=== PATIENT | male | born 1965 | race African-American/Black ===

== ENCOUNTER 2019-07-05 15:49 | Inpatient (IN) ==
[2019-07-05] MEDS ORDERED: ASPIRIN ONE (15:58)
[2019-07-05] MEDS ORDERED: ASPIRIN PO ONE (16:01)
--- NOTE | 2019-07-05 16:06 | EKG Report ---
Test Performed on : 07/05/2019 3:53:13 PM Test Reason : Cp Blood Pressure : / mmHG Vent. Rate : 102 BPM Atrial Rate : 102 BPM P-R Int : 160 ms QRS Dur : 100 ms QT Int : 368 ms P-R-T Axes : 071 -63 099 degrees QTc Int : 479 ms Sinus tachycardia. Possible Left atrial enlargement Pulmonary disease pattern Left anterior fascicular block T wave abnormality, consider lateral ischemia Abnormal ECG No previous ECGs available Unconfirmed Result
--- NOTE | 2019-07-05 16:11 | PROVIDER DOCUMENTATION ---
HPI-Chest Pain - General Chief Complaint: Chest Pain Stated Complaint: CHEST PAIN Time Seen by Provider: 07/05/19 16:00 Source: patient Allergies/Adverse Reactions: Patient Allergies Allergy/AdvReac Type Severity Reaction Status Date / Time No Known Allergies Allergy Verified 07/05/19 17:37 Home Medications: Home Medication List Medication Instructions Recorded Confirmed Last Taken Type NK [No Home Medications] 07/05/19 07/05/19 Unknown History - History of Present Illness-CP Nature of Presenting Problem: 53 YOM with PMH of HTN (on no medications) presents with c/o CP that is pressure like and sharp in nature that radiates to the R shoulder, Shoulder pain made worse with movement, he was moving tires when the symptoms occurred. He reports at this time he does not have pain unless he removes his arm. He denies fever, chills. Reports Shortness of breath at the onset of symptoms. He reports recent URI with post nasal drip and cough x 3 weeks. No worse and is improving. Location: reports: substernal Chest Pain Radiation: reports: shoulders (r) Quality of Pain: reports: pressure, sharp Severity in ED: moderate Onset/Duration: 1-3 hours ago Timing: intermittent Context/Activities at Onset: reports: moderate activity Modifying Factors: worse with: movement Associated Symptoms: reports: shortness of breath. denies: fever/chills Nitro Today/Relief: no nitro taken today Aspirin Treatment Today: 325 mg x 1, provided by ED Prior Chest Pain/Cardiac Workup: reports: no prior chest pain, no prior cardiac workup Similar Symptoms Previously?: No Recently Seen Here or By Another Healthcare Provider: Yes Review of Systems - Adult - REVIEW OF SYSTEMS - ADULT Constitutional: reports: no symptoms reported. denies: see HPI, chills, fever, fatique, night sweats, weight gain, weight loss, other Eyes: reports: no symptoms reported. denies: see HPI, discharge, dry eyes, decreased vision, blurred vision, double vision, eye pain, redness, other Ears, Nose, Mouth & Throat: reports: no symptoms reported. denies: see HPI, ear discharge, ear pain, hearing loss, tinnitus, epistaxis, sinus problem, nose pain, loose teeth, mouth/dental pain, mouth swelling, hoarseness, throat pain, throat swelling, other Cardiovascular: reports: see HPI, chest pain. denies: no symptoms reported, edema, heart murmur, irregular heart rate, orthopnea, palpitations, poor circulation, PND, syncope, other Respiratory: reports: cough, shortness of breath. denies: no symptoms reported, see HPI, chronic cough, dyspnea on exertion, excessive sputum production, hemoptysis, pleurisy, wheezing, other Gastrointestinal: reports: no symptoms reported. denies: see HPI, abdominal pain, hematemesis, constipation, diarrhea, difficulty swallowing, frequent heartburn, nausea, poor appetite, rectal bleeding, vomiting, other Genitourinary: reports: no symptoms reported. denies: see HPI, dysuria, discharge, frequency, flank pain, frequent UTI's, hematuria, hesitency, incontinence, urinary retention, urgency, other Musculoskeletal: reports: joint pain (R shoulder). denies: no symptoms reported, see HPI, bone pain, back pain, frequent leg cramps, joint swelling, muscle aches, muscle weakness, neck pain, other Integumentary: reports: no symptoms reported. denies: see HPI, hives, hair loss, itching, mole changes, nail changes, rash, skin sores/ulcer, skin thickening, other Neurological: reports: no symptoms reported. denies: see HPI, ataxia, dizziness/vertigo, headache/migraines, loss of balance, numbness, paresthesia, seizure, slurred speech, syncope, tremors, other Psychiatric: reports: no symptoms reported. denies: see HPI, anxiety, anti- depressant use, alcohol/drug dependence, depression, emotional problems, insomnia, panic attacks, suicidal thoughts, other Endocrine: reports: no symptoms reported. denies: see HPI, change in skin pigment, excessive sweating, goiter, cold intolerance, heat intolerance, increased hunger, increased thirst, polyuria, other Hematologic/Lymphatic: reports: no symptoms reported. denies: see HPI, blood clots, easy bruising, low blood count, lymphedema, prolonged bleeding, swollen l ymph nodes, transfusions, other Allergic/Immunologic: reports: no symptoms reported. denies: see HPI, allergic reactions, allergic rhinitis, asthma, eczema, food allergy, frequent infections, hay fever, hives, positive PPD, urticaria, other Past History - Adult - PAST MEDICAL HISTORY-ADULT Review of Records: reports: Nursing Assessment Review, Social history reviewed & non-contributory. Major Childhood Illnesses: reports: denies history Cardiovascular: reports: denies history Respiratory: reports: denies history Gastrointestinal: reports: denies history Obstetrical/Gynecological: reports: denies history Genitourinary: reports: denies history Musculoskeletal: reports: denies history Neurological: reports: denies history Endocrine/Immune: reports: denies history Other Conditions: reports: denies history - IMMUNIZATION STATUS Childhood Immunizations: See Nurse Assessment Flu Vaccine: See Nurse Assessment - FAMILY HISTORY Family History: reviewed, not pertinent Physical Exam-General - PHYSICAL EXAM-ADULT Initial Vital Signs Reviewed: Yes - CONSTITUTIONAL General Appearance: appears well, alert, no apparent distress - EYES Eyes: PERRL/EOMI, pink conjunctivae - HEAD, EARS, NOSE, MOUTH & THROAT HENMT: normocephalic/atraumatic, moist mucous membranes, normal ENT inspection - NECK Neck: non-tender, full range of motion, supple - RESPIRATORY Respiratory: chest non-tender, lungs clear, normal breath sounds, no respiratory distress, no accessory muscle use - CARDIOVASCULAR Cardiovascular: normal peripheral pulses, no edema, no gallop, no JVD, tachycardia - CHEST (BREASTS) Chest/Breast: negative: tenderness - GASTROINTESTINAL (ABDOMEN) Abdominal Exam: normal bowel sounds, non tender, soft - LYMPHATIC Lymphatic: no adenopathy - MUSCULOSKELETAL Back Exam: normal inspection, no CVA tenderness, no vertebral tenderness Extremity: normal range of motion, non-tender, normal gait, normal inspection, no pedal edema, no calf tenderness Peripheral Pulses: radial (R): 2+, radial (L): 2+ - SKIN Integumentary: normal color, normal turgor, warm/dry - NEUROLOGIC Neurologic: grossly normal - PSYCHIATRIC Psych/Mental Status: normal mood/affect, oriented x 3 - HEART Score HEART Score: History: Moderately Suspicious HEART Score: ECG: Non-Specific Repolarization Disturbance/LBBB/PM HEART Score: Age: 45-65 Years HEART Score: Risk Factors for Atherosclerotic Disease: 1 or 2 Risk Factors HEART Score: Troponin: 1-3x Normal Limit Total HEART Score:: 5 Progress - PLAN OF CARE/RESULTS Progress/Plan/Lab Results: Vital Signs - 8 hr 07/05/19 15:55 07/05/19 17:32 Temperature 97.9 F Pulse Rate 101 H 97 H Respiratory Rate 20 15 Blood Pressure 175/105 167/112 O2 Sat by Pulse Oximetry 98 97 Laboratory Results - last 24 hr 07/05/19 07/05/19 07/05/19 16:04 16:04 16:04 WBC RBC Hgb Hct MCV MCH MCHC RDW Std Deviation Plt Count MPV Immature Gran % (Auto) Neut % (Auto) Lymph % (Auto) Pepin % (Auto) Eos % (Auto) Baso % (Auto) Immature Gran # (Auto) Neut # (Auto) Lymph # (Auto) Pepin # (Auto) Eos # (Auto) Baso # (Auto) PT INR PTT (Actin FS) D-Dimer, Quantitative Sodium 140 Potassium 4.3 Chloride 102 Carbon Dioxide 26 Anion Gap 12 BUN 18 Creatinine 1.2 Estimated GFR/1.73 m2 > 60 BUN/Creatinine Ratio 15 Glucose 109 H Calculated Osmolality 282 Calcium 9.6 Total Bilirubin 0.30 AST 41 H ALT 77 H Alkaline Phosphatase 83 Creatine Kinase 326 H Creatine Kinase Index 1.8 CK-MB (CK-2) 5.96 H Troponin T High Sens 80 H Kgg-S-Nrealwbriwa Pept Total Protein 7.0 Albumin 4.3 Globulin 3.0 Albumin/Globulin Ratio 2.0 07/05/19 07/05/19 07/05/19 16:04 16:04 16:04 WBC 4.95 RBC 5.05 Hgb 12.8 L Hct 40.7 L MCV 80.6 L MCH 25.3 L MCHC 31.4 L RDW Std Deviation 15.4 H Plt Count 232 MPV 11.2 H Immature Gran % (Auto) 0.2 Neut % (Auto) 41.3 L Lymph % (Auto) 44.2 Pepin % (Auto) 10.3 H Eos % (Auto) 3.2 Baso % (Auto) 0.8 Immature Gran # (Auto) 0.01 Neut # (Auto) 2.04 Lymph # (Auto) 2.19 Pepin # (Auto) 0.51 Eos # (Auto) 0.16 Baso # (Auto) 0.04 PT INR PTT (Actin FS) D-Dimer, Quantitative < 0.27 Sodium Potassium Chloride Carbon Dioxide Anion Gap BUN Creatinine Estimated GFR/1.73 m2 BUN/Creatinine Ratio Glucose Calculated Osmolality Calcium Total Bilirubin AST ALT Alkaline Phosphatase Creatine Kinase Creatine Kinase Index CK-MB (CK-2) Troponin T High Sens Bmc-Y-Tahcltyvuoh Pept 3064 H Total Protein Albumin Globulin Albumin/Globulin Ratio 07/05/19 16:04 WBC RBC Hgb Hct MCV MCH MCHC RDW Std Deviation Plt Count MPV Immature Gran % (Auto) Neut % (Auto) Lymph % (Auto) Pepin % (Auto) Eos % (Auto) Baso % (Auto) Immature Gran # (Auto) Neut # (Auto) Lymph # (Auto) Pepin # (Auto) Eos # (Auto) Baso # (Auto) PT 12.5 INR 0.89 PTT (Actin FS) 30.7 D-Dimer, Quantitative Sodium Potassium Chloride Carbon Dioxide Anion Gap BUN Creatinine Estimated GFR/1.73 m2 BUN/Creatinine Ratio Glucose Calculated Osmolality Calcium Total Bilirubin AST ALT Alkaline Phosphatase Creatine Kinase Creatine Kinase Index CK-MB (CK-2) Troponin T High Sens Vje-V-Cngdfcjmeab Pept Total Protein Albumin Globulin Albumin/Globulin Ratio Orders Category Date Time Status Saline Loc NOW Care 07/05/19 16:01 Active CHEST-2 VIEWS [RAD] Stat Exams 07/05/19 16:01 Completed BNP [PRO B-NATRIURETIC PEPTIDE] Stat Lab 07/05/19 16:04 Completed CBC WITH ELECTRONIC DIFF [HEME] Stat Lab 07/05/19 16:04 Completed CK PROFILE [SP CHEM] Stat Lab 07/05/19 16:04 Completed COMPREHENSIVE METABOLIC PANEL [CHEM] Stat Lab 07/05/19 16:04 Completed D-DIMER [COAG] Stat Lab 07/05/19 16:04 Completed PT [PROTIME WITH INR] [COAG] Stat Lab 07/05/19 16:04 Completed PTT [COAG] Stat Lab 07/05/19 16:04 Completed TROPONIN T HIGH SENSITIVITY Stat Lab 07/05/19 16:04 Completed TROPONIN T HIGH SENSITIVITY Stat Lab 07/05/19 17:45 Ordered Aspirin Med 07/05/19 15:58 Discontinued 325 mg .ROUTE .STK-MED ONE Aspirin Med 07/05/19 16:01 Discontinued 325 mg PO NOW ONE Morphine Med 07/05/19 17:04 Discontinued 2 mg IV NOW ONE Ondansetron [Zofran] Med 07/05/19 17:04 Discontinued 4 mg IV NOW ONE EKG [EKG] Stat Ther 07/05/19 16:01 Draft EKG [EKG] Stat Ther 07/05/19 17:45 Ordered Result Diagrams: 07/05/19 16:04 07/05/19 16:04 - EKG 1 Time of EKG reading by physician:: 16:00 EKG Read and Signed by:: Nataliia Carpenter EKG Interpretation (*Must complete 3 of following elements*): Abnormal Rate: 102 Rhythm: ST [place]: normal QRS: other (possible LAE, pulmonary disease pattern, L anterior fascicular block) ST Wave: non-specific ST changes Prior EKG Comparison: no prior EKG - XRAY 1 XRAY Study: Chest Impression: See EMR Report (CHEST-2 VIEWS - 07/05/2019 INDICATION: CP COMPARISON: 06/04/2019 FINDINGS: There is cardiomegaly which may have increased slightly since prior. No infiltrates or edema. No pneumothorax or pleural effusion. IMPRESSION: Worsening cardiomegaly. Electronically signed by Peter Kumar 07/05/2019 4:37 PM 07/05/19 1637 Interpreting Physician: Peter Kumar MD Dictated Date/Time: 07/05/19 1636 cc: Francine Gaona; None,PCP) - CONSULTS/PCP/HOSPITALIST Notification #1 *Consult/PCP/Hospitalist*: Dr. Wheeler Time Discussed: 17:16 Consult Disposition: Admit (admit to [facility], consult cardiology, ASA, trend trop and ekg's) #2 Consult: Dr. Dow Time Discussed: 17:46 Consult Disposition: Admit Departure - Departure Date of Disposition Decision: 07/05/19 Time of Disposition Decision: 17:46 DIAGNOSIS: Chest pain, Elevated troponin, HTN (hypertension), Elevated brain natriuretic peptide (BNP) level Disposition: ADMITTED INPATIENT 09 Certified Medical Emergency: Emergent Condition: Stable Referrals and Follow-Ups: None,PCP [Primary Care Provider] - - Critical Care Note This patient required my direct & personal management of CC.: No Attestation - Physician/ JOSE Attestation Patient care was provided by Advanced Practice Provider:: Yes Advanced Practice Provider:: Francine Gaona Advanced Practice Provider documentation review:: The Mid-level provider documentation, treatment plan and medical decision making was reviewed by the physician who agrees with all treatment and medical decision making by the P. The physician spent face to face time with patient:: No Advanced Practice Provider documentation review:: Supervising physician onsite and consulted in the evaluation and care of this patient. The physician did not have a face to face encounter with the patient.
[2019-07-05 16:25] LABS: BASO# 0.04 X1000 (0.0-0.2); BASO% 0.8 % (0.0-0.8); EOS# 0.16 X1000 (0.0-0.7); EOS% 3.2 % (0.0-10.0); HEMATOCRIT 40.7 % (42.0-52.0); HEMOGLOBIN 12.8 g/dL (14.0-18.0); IMM GRAN# 0.01 X1000 (0.0-0.04); IMM GRAN% 0.2 % (0.0-0.5); LYMPH# 2.19 X1000 (1.2-3.4); LYMPH% 44.2 % (20.5-51.1); MCH 25.3 PG (27-31); MCHC 31.4 g/dL (33-37); MCV 80.6 FL (81-99); MONO# 0.51 X1000 (0.11-0.59); MONO% 10.3 % (1.7-9.3); MPV 11.2 FL (7.4-10.4); NEUT# 2.04 X1000 (1.4-6.5); NEUT% 41.3 % (42.2-75.2); PLT 232 X1000 (130-400); RBC 5.05 XMIL (4.7-6.1); RDW 15.4 % (11.5-14.5); WBC 4.95 X1000 (4.8-10.8)
[2019-07-05 16:39] LABS: AGAP 12; ALBUMIN 4.3 g/dL (3.5-5.0); ALKALINE PHOSPHATASE 83 U/L (32-122); BUN 18 mg/dL (8-22); CALCIUM 9.6 mg/dL (8.8-10.2); CHLORIDE 102 mmol/L (98-107); COSMO 282; CREATININE 1.2 mg/dL (0.7-1.2); ESTIMATED GFR > 60; GLUCOSE 109 mg/dL (70-104); GOT 41 U/L (10-34); GPT 77 U/L (10-44); POTASSIUM 4.3 mmol/L (3.5-5.1); SODIUM 140 mmol/L (136-145); TCO2 26 mmol/L (25-35)
--- NOTE | 2019-07-05 16:39 | Diag Imaging Result Doc PS360 ---
CHEST-2 VIEWS - 07/05/2019 INDICATION: CP COMPARISON: 06/04/2019 FINDINGS: There is cardiomegaly which may have increased slightly since prior. No infiltrates or edema. No pneumothorax or pleural effusion. IMPRESSION: Worsening cardiomegaly. Electronically signed by Peter Kumar 07/05/2019 4:37 PM
[2019-07-05] MEDS ORDERED: ZOFRAN IV ONE (17:04)
[2019-07-05] MEDS ORDERED: MORPHINE IV ONE (17:04)
[2019-07-05 17:06] LABS: CK INDEX 1.8 (0.0-2.5); CK-MB 5.96 ng/mL (0.0-5.0)
[2019-07-05 17:29] LABS: INR 0.89; PROTIME 12.5 Seconds (11.0-16.0)
[2019-07-05 17:30] LABS: PTT 30.7 Seconds (22.3-41.8)
[2019-07-05] MEDS ORDERED: CATAPRES PO ONE (17:47)
--- NOTE | 2019-07-05 18:51 | HISTORY AND PHYSICAL ---
PRIMARY CARE PROVIDER: None. CHIEF COMPLAINT: Chest pain, right shoulder pain. HPI: Mr. Griffin is a 53-year-old gentleman who really claims no past medical history except told he had hypertension a few weeks ago at the urgent care when he was diagnosed with upper respiratory infection. He has been taking wqmz-jcx-rabdogj cold medicine. He reported some postnasal drip, mild cough that has improved. No fever, no chills. He came to the ED for ongoing chest pain for 1 month is epigastric in nature. However the last 2 weeks the chest pain has been associated with shortness of breath. No diaphoresis, nausea, vomiting or dizziness. He reports that the pain is sharp in nature lasts for a few minutes. Workup in the ED revealed elevated CK and troponin. ED spoke with Dr. Wheeler, he recommended a transfer to [facility] for [facility] evaluation. Second troponin is elevated as well. He was found to have accelerated hypertension 190s over 100s. Will make him NPO after midnight let Dr. Wheeler decide on testing, will set him up for an echocardiogram, check lipid profile, continue with p.r.n. pain medications and get a right shoulder x-ray. PAST MEDICAL HISTORY: Recently diagnosed with hypertension but he is not on any medication. PAST SURGICAL HISTORY: Left hip with pins as a child, right arm pins as a child. FAMILY HISTORY: Positive for cancer, sister with breast cancer, mom breast cancer, no coronary disease, no diabetes. 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 No tobacco, alcohol or illicit drug use. ALLERGIES: No known drug allergies. HOME MEDICATIONS: None besides xkqc-vox-amlbrcv cough medicines and ibuprofen for his chest pain. REVIEW OF SYSTEMS: Twelve-point review of systems completely negative except for those mentioned in HPI. PHYSICAL EXAMINATION: VITAL SIGNS: Temperature 97.9 degrees, heart rate 97, respiration 15, blood pressure was 190s over 138 in the room, O2 saturation was 97% on room air however he was complaining of some right shoulder pain secondary to his injury but in no acute distress. HEENT: Atraumatic, normocephalic. PERRL. NECK: Supple, trachea midline. CARDIOVASCULAR: S1, S2 appreciated. No murmurs, gallops, rubs noted. RESPIRATORY: Lung sounds clear bilaterally. GI: Soft, nontender, nondistended. Positive bowel sounds 4 quads. Lower extremities negative for edema, could not appreciate pedal pulses as still has tennis shoe laced up. NEUROLOGIC: No focal deficits noted. LABORATORY DATA: White count 4, hemoglobin and hematocrit 12 and 40, platelet count is 232,000. Sodium 140, potassium 4.3, BUN 18, creatinine 1.2, blood glucose is 109, AST 41, ALT 77, CK 326, CK-MB 5.96, 1st troponin is 80, 2nd troponin 76, ProBNP is 3064. Chest x-ray shows worsening cardiomegaly, no infiltrates or edema. ASSESSMENT AND PLAN: 1. Chest pain rule out, he does have 2 sets of moderately elevated troponins. Will continue to trend 2 more sets, ED spoke with Liam, he would like him transferred to [facility] for further evaluation. Will make him NPO after midnight. Check an echocardiogram, lipid profile, continue full-dose aspirin, p.r.n. pain medications for chest pain. 2. Right shoulder injury secondary to flipping a tire. Will continue with p.r.nTorito Quinones, will get a right shoulder x-ray. 3. Accelerated hypertension, was treated and will follow Dictated by SENA Mcrae for Nick Jackson MD cc: Nick Jackson MD [facility]
[2019-07-05] MEDS ORDERED: MORPHINE ONE (19:08)
[2019-07-05] MEDS ORDERED: ZOFRAN IV PRN (19:14)
[2019-07-05] MEDS ORDERED: NITROGLYCERIN SL PRN (19:14)
[2019-07-05] MEDS: APRESOLINE IV PRN (19:16)
[2019-07-05] MEDS: MORPHINE IV PRN ×2 (19:18→23:47)
--- NOTE | 2019-07-05 19:40 | Diag Imaging Result Doc PS360 ---
SHOULDER-RIGHT - 07/05/2019 INDICATION: R shoulder injury TECHNIQUE: Three views COMPARISON: None FINDINGS: There is moderately severe degeneration of the acromial clavicular joint. No significant downgoing spurring. No fracture or dislocation. The glenohumeral joint is preserved. IMPRESSION: Acromioclavicular joint degeneration. Electronically signed by Peter Kumar 07/05/2019 7:38 PM
[2019-07-05] MEDS: TYLENOL PO PRN (21:26)
--- NOTE | 2019-07-06 00:38 | HISTORY AND PHYSICAL ---
ADDENDUM: The patient presented to the hospital with markedly elevated blood pressure, right shoulder pain after removing a tire. His shoulder started hurting. We are going to admit the hospital. He currently is awake, alert. He is no distress. We are going to attempt to get his blood pressures better controlled. cc: Nick Jackson MD MTDD
[2019-07-06] MEDS: MORPHINE IV PRN ×3 (04:14→21:25)
[2019-07-06 04:55] LABS: BASO# 0.04 X1000 (0.0-0.2); BASO% 0.9 % (0.0-0.8); EOS# 0.16 X1000 (0.0-0.7); EOS% 3.4 % (0.0-10.0); HEMATOCRIT 39.7 % (42.0-52.0); HEMOGLOBIN 12.4 g/dL (14.0-18.0); LYMPH# 1.84 X1000 (1.2-3.4); LYMPH% 39.4 % (20.5-51.1); MCH 25.2 PG (27-31); MCHC 31.2 g/dL (33-37); MCV 80.7 FL (81-99); MONO# 0.39 X1000 (0.11-0.59); MONO% 8.4 % (1.7-9.3); MPV 11.6 FL (7.4-10.4); NEUT# 2.24 X1000 (1.4-6.5); NEUT% 47.9 % (42.2-75.2); PLT 215 X1000 (130-400); RBC 4.92 XMIL (4.7-6.1); RDW 15.6 % (11.5-14.5); WBC 4.67 X1000 (4.8-10.8)
[2019-07-06 05:01] LABS: AGAP 13; ALB/GLOB RATIO 2.1; ALKALINE PHOSPHATASE 76 U/L (32-122); BUN 20 mg/dL (8-22); CALCIUM 9.4 mg/dL (8.8-10.2); CHLORIDE 104 mmol/L (98-107); CHOLESTEROL 211 mg/dL (0-200); COSMO 283; CREATININE 1.2 mg/dL (0.7-1.2); ESTIMATED GFR > 60; GLUCOSE 110 mg/dL (70-104); GOT 31 U/L (10-34); GPT 64 U/L (10-44); HDL 48 mg/dL (35-55); LDL 123 mg/dL; POTASSIUM 4.4 mmol/L (3.5-5.1); SODIUM 140 mmol/L (136-145); TCO2 23 mmol/L (25-35); TOTAL BILIRUBIN 0.42 mg/dL (0.20-1.00); TOTAL PROTEIN 5.9 g/dL (6.3-8.3); TRIGLYCERIDES 200 mg/dL (39-160); VLDL 40 mg/dL
[2019-07-06 05:25] LABS: CK-MB 4.71 ng/mL (0.0-5.0)
[2019-07-06] MEDS: PRILOSEC PO SCH (06:05)
--- NOTE | 2019-07-06 07:15 | Diag Imaging Result Doc PS360 ---
EXAM: CHEST-PORTABLE 07/06/2019 HISTORY: Chest Pain TECHNIQUE: AP portable at 0623 COMMENT: There is cardiomegaly. Considering differences in technique there has been no significant change in the appearance of the chest since 07/05/2019. IMPRESSION: Stable chest. Electronically signed by Prosper Richardson 07/06/2019 7:12 AM
[2019-07-06] MEDS ORDERED: NORVASC PO SCH (09:00)
[2019-07-06] MEDS ORDERED: ASPIRIN PO SCH (09:00)
--- NOTE | 2019-07-06 09:17 | PROGRESS NOTE ---
DATE: 07/06/2019 SUBJECTIVE: Patient reports feeling fine. Chest pain is still there, and sometimes it is triggered by the cough that he had for pneumonia that was treated 2 weeks ago. OBJECTIVE: Vital Signs: Temperature 98.6 degrees, heart rate 92, respiratory rate 17, blood pressure 150/107, O2 saturation 94% on room air. General examination: This is a 53-year-old, male, lying in bed in no acute distress. Cardiovascular exam: S1, S2 heard. No murmurs, gallops, or rubs. Regular rate and rhythm. Respiratory exam: Clear bilaterally to auscultation. No work of breathing or using accessory muscles. Abdomen: Soft. Nontender to palpation. Bowel sounds present. No organomegaly. Extremities: No clubbing, cyanosis, or edema. Peripheral pulses present in both legs. Neurological exam: Patient is alert and oriented x3. Moves 4 extremities. LABORATORY DATA: White cell count 4.67, hemoglobin 12.4, hematocrit 39.7, platelets 215. ProBNP 2950, cholesterol 211, triglycerides 200. ASSESSMENT AND PLAN: 1. Chest pain. The patient had moderately elevated troponins and, because of risk factors, we decided to do a Lexiscan stress test. We will see what it shows. He complains of cough that triggers pain, so at this point I will do a computed tomography scan of the chest to see if there is any pneumonia. Regarding chest pain, we will check an echocardiogram. Lipid has been high, so we have taken care of. 2. Right shoulder injury secondary to sleeping attire. Will continue with as needed [place]. 3. Accelerated hypertension. We will continue with home medications. Blood pressure is much better controlled. cc: Deo Langston MD
--- NOTE | 2019-07-06 09:34 | Diag Imaging Result Doc PS360 ---
EXAM: CT THORAX W/O CONTRAST INDICATION: suspected pna TECHNIQUE: This exam was performed using automated exposure control, adjustment of mA or kV according to patient size, and/or use of iterative reconstruction technique. COMPARISON: None. FINDINGS: There is marked cardiomegaly. There are patchy atherosclerotic calcifications involving the LAD and circumflex artery. There are shotty nonspecific mediastinal lymph nodes. There is mild subsegmental atelectasis at the lung bases. There is minimal interstitial thickening at the lung bases suggesting mild edema. There is mild bronchial mucosal thickening at the lung bases, which suggests bronchitis. There are mild patchy groundglass opacities in the right lung. This is mainly in the right middle lobe. There is minimal groundglass opacity at the superior aspect of the right upper lobe. This is suspicious for mild pneumonia, possibly an atypical viral pneumonia. However, it could also be patchy edema involving the airspaces. There is trace pleural fluid on the right. There is no pneumothorax. Limited views of the upper abdomen are essentially unremarkable. IMPRESSION: 1.Marked cardiomegaly. 2.Mild patchy groundglass opacity in the right lung, predominantly in the right middle lobe suspicious for mild pneumonia, possibly an atypical pneumonia. 3.Mild bronchial mucosal thickening at the lung bases suggesting bronchitis. 4.Minimal interstitial thickening at the lung bases suggesting mild interstitial edema. Electronically signed by Javon Levy 07/06/2019 9:32 AM
--- NOTE | 2019-07-06 10:39 | CARDIOLOGY CONSULTATION ---
DATE: 07/06/2019 CHIEF COMPLAINT ON PRESENTATION: Cough and chest pain. HISTORY OF PRESENT ILLNESS: Mr. Griffin is a 53-year-old, black male with no past medical history by virtue of lack of contact with the medical community. He presented for evaluation of chest discomfort that began yesterday when he woke up from sleep. This was described as a pressure and sharp pain in the mid chest. There was no strict exertional component to it but there was a component that was worse with cough. He has been dealing with an upper respiratory infection for the last 3 weeks or so. He denies any fever. He went to the ER, he reports, and was told that he had postnasal drip and was sent home. He otherwise has no complaints. He denies any overt orthopnea. He does not smoke. He has no other past medical history. PAST MEDICAL HISTORY: Possible hypertension but, again, he does not regularly see physicians. SOCIAL HISTORY: He does not smoke. No alcohol. REVIEW OF SYSTEMS: A 10 system review of systems is negative except for those things mentioned in the HPI. FAMILY HISTORY: He has a sister and mother with breast cancer. No early history of coronary artery disease. PHYSICAL EXAMINATION: The patient has been afebrile. His heart rate is 93. His blood pressure is 150/107. General: He is in no acute distress. HEENT: Oropharynx is moist. Normal dentition. Eye examination shows pink conjunctivae and white sclerae. Neck Examination: Shows no obvious thyromegaly or thyroid tenderness. Cardiovascular: He sounds to be in a regular rate and rhythm. He has no obvious murmurs. He has no S3. He has no lower extremity edema. Chest Examination: Sounds clear to auscultation bilaterally. He has no increased work of breathing. Abdomen: Soft, nontender. Neurological: He is moving all extremities well. Skin Examination: Warm and dry throughout, without any rashes. Psychiatric: Alert, oriented, and pleasant. Normal mood and affect. PERTINENT DATA: He had an electrocardiogram performed on the that demonstrates sinus rhythm. He has some evidence of abnormal T-waves with T-wave inversions in the lateral leads. He has poor R-wave progression. Possible left anterior fascicular block. Left atrial enlargement. He had a chest CT performed that shows mild patchy ground-glass opacity in the right lung in the right middle lobe, suspicious for a possible mild or atypical pneumonia. Some evidence for bronchitis with bronchial mucosal thickening at the lung bases. His lab data shows a white count of 4.6, hematocrit 39, platelet count is 215,000. His sodium is 140, potassium is 4.4, BUN 20, creatinine is 1.2. His proBNP is 2950. His initial high sensitivity troponin was 80, subsequently it was 76, followed by 85. His LDL was 123. ASSESSMENT: Mr. Griffin is a 53-year-old, black male who presented with atypical chest pain with a mild elevation in his troponin. PLAN: Initial review of his stress by me demonstrated a suggestion of cardiomegaly but no clear evidence of defects. We will proceed with the rest of the study. He has already been initiated on medications in the form of amlodipine. For now, we will continue on the current medications and await the remainder of his testing. cc: Azam Keane MD
[2019-07-06] MEDS: APRESOLINE IV PRN (12:16)
[2019-07-06] MEDS: NORCO-7.5 PO PRN (12:17)
[2019-07-06 13:09] LABS: CK-MB 4.42 ng/mL (0.0-5.0)
--- NOTE | 2019-07-06 13:34 | Diag Imaging Result Document ---
PROCEDURE NAME: MYOCARDIAL PERF SCAN, STR/REST - 07/06/2019 EXERCISE SESTAMIBI INTERPRETATION: SUMMARY: The patient was administered 15.4 mCi of technetium-99m sestamibi, after which resting cardiac images were obtained. The patient was subsequently exercised on a treadmill according to a Morteza protocol and exercised for a total of 5 minutes achieving a maximum workload of stage II and 7.0 METS. With exercise, the heart increased from 96 beats per minute to 150 beats per minute, representing 90% of maximal age-predicted heart rate. The blood pressure increased from 163/112 to 241/111. With exercise, the patient denied chest discomfort. At peak exercise, the patient was administered 44.8 mCi of technetium-99m sestamibi, after which gated stress cardiac images were obtained. Baseline ECG demonstrated sinus rhythm, right axis deviation, delayed precordial R-wave progression and nonspecific T-wave abnormality. With exercise, there were no diagnostic ST- segment changes. SPECT images were reconstructed in the short, horizontal long, and vertical long axis. Review of SPECT images suggests severe left ventricular enlargement. Perfusion images demonstrate mild to moderate diminished activity in the inferior wall on stress images which appears similar on resting images. No significant reversibility is evident. Gated images demonstrate a calculated left ventricular ejection fraction of 23% with severe global hypokinesis. CONCLUSIONS: 1. Limited aerobic capacity. Target heart rate achieved. 2. Clinically negative for chest pain. 3. Electrocardiographically, there were no diagnostic ST-segment changes on exercise ECG. 4. Exercise sestamibi images demonstrate severe left ventricular enlargement, severe global hypokinesis, and a calculated left ventricular ejection fraction of 23%. Perfusion images demonstrate mildly diminished activity in the basal and mid inferior wall on stress images, which remains unchanged on resting images and is most consistent with soft tissue/diaphragm attenuation artifact. There is no convincing scintigraphic evidence of inducible myocardial ischemia. Clinical correlation recommended. cc: MD Deo Cobos MD
[2019-07-06] MEDS ORDERED: LASIX IV ONE (16:02)
[2019-07-06] MEDS ORDERED: APRESOLINE IV PRN (16:15)
[2019-07-06] MEDS: TYLENOL PO PRN (17:06)
[2019-07-06 17:29] LABS: UR AMPHETAMINES QUAL NONE DETECTED (NONE DETECT); UR BARBITUATES QUAL NONE DETECTED (NONE DETECT); UR BENZODIAZEPIN QUAL NONE DETECTED (NONE DETECT); UR CANNABINOIDS QUAL NONE DETECTED (NONE DETECT); UR COCAINE QUAL NONE DETECTED (NONE DETECT); UR METHADONE QUAL NONE DETECTED (NONE DETECT); UR OPIATES QUAL PRESUMPTIVE POSITIVE (NONE DETECT); UR OXYCODONE QUAL NONE DETECTED (NONE DETECT); UR PCP QUAL NONE DETECTED (NONE DETECT)
[2019-07-06] MEDS: ZOSYN 3.375 GM in NS 50 ML IV SCH (20:56)
[2019-07-06] MEDS: ENTRESTO 24 MG-26 MG TABLET PO SCH (20:56)
[2019-07-07] MEDS: LEVAQUIN 750 MG/D5W 750 MG/150 ML IVPB IV SCH (01:23)
[2019-07-07] MEDS: DUONEB (A & A) INH SCH ×5 (03:50→23:15)
[2019-07-07] MEDS ORDERED: LASIX IV SCH (04:00)
[2019-07-07] MEDS: ZOSYN 3.375 GM in NS 50 ML IV SCH ×4 (04:02→20:03)
[2019-07-07] MEDS: MORPHINE IV PRN ×2 (04:07→22:18)
[2019-07-07] MEDS: PRILOSEC PO SCH ×2 (05:29→06:09)
[2019-07-07 05:46] LABS: BASO# 0.03 X1000 (0.0-0.2); BASO% 0.7 % (0.0-0.8); EOS# 0.15 X1000 (0.0-0.7); EOS% 3.3 % (0.0-10.0); HEMATOCRIT 43.6 % (42.0-52.0); HEMOGLOBIN 13.8 g/dL (14.0-18.0); LYMPH# 1.19 X1000 (1.2-3.4); MCH 25.2 PG (27-31); MCHC 31.7 g/dL (33-37); MCV 79.6 FL (81-99); MONO# 0.46 X1000 (0.11-0.59); MONO% 10.1 % (1.7-9.3); MPV 11.4 FL (7.4-10.4); NEUT# 2.74 X1000 (1.4-6.5); NEUT% 59.9 % (42.2-75.2); PLT 241 X1000 (130-400); RBC 5.48 XMIL (4.7-6.1); RDW 15.5 % (11.5-14.5); WBC 4.57 X1000 (4.8-10.8)
[2019-07-07 06:25] LABS: AGAP 15; ALBUMIN 3.9 g/dL (3.5-5.0); BUN 19 mg/dL (8-22); CHLORIDE 101 mmol/L (98-107); COSMO 283; CREATININE 1.4 mg/dL (0.7-1.2); ESTIMATED GFR > 60; GLUCOSE 117 mg/dL (70-104); PHOSPHORUS 4.3 mg/dL (2.7-4.5); POTASSIUM 3.8 mmol/L (3.5-5.1); SODIUM 140 mmol/L (136-145); TCO2 24 mmol/L (25-35)
[2019-07-07] MEDS: ENTRESTO 24 MG-26 MG TABLET PO SCH ×2 (08:34→20:03)
[2019-07-07] MEDS: ASPIRIN EC PO SCH (08:34)
[2019-07-07] MEDS: NORVASC PO SCH (08:34)
--- NOTE | 2019-07-07 08:39 | ECHO REPORT ---
ORDER DATE: 07/06/2019 ECHOCARDIOGRAPHIC MEASUREMENTS: 1. Septal thickness 1.4. 2. Left ventricular internal diameter in diastole 5.8. 3. Posterior wall thickness 1.4. 4. Aortic root 3.2. 5. Left atrium 3.4. SUMMARY: 1. Fair quality study. 2. Aortic valve is trileaflet and opens normally on 2-dimensional images. The peak gradient across the aortic valve is less than 10 mmHg. Mitral, tricuspid and pulmonic valves are without evidence of structural abnormality with very mild mitral regurgitation, trace tricuspid regurgitation, and mild pulmonic insufficiency. The aortic root is normal in size. 3. Borderline left ventricular enlargement with moderate concentric left ventricular hypertrophy is suggested. Estimated ejection fraction approximately 20% in the setting of severe global hypokinesis. Left atrium is mildly enlarged on 2-dimensional images. Right atrium and right ventricle are grossly normal in size with grossly preserved right ventricular systolic function. 4. No pericardial effusion. 5. Appearance of inferior vena cava suggests elevated central venous pressure. CONCLUSIONS: 1. Very mild mitral regurgitation. 2. Borderline left ventricular enlargement with moderate concentric left ventricular hypertrophy and estimated left ventricular ejection fraction approximately 20%. 3. Mild left atrial enlargement. 4. Elevated central venous pressure suggested. cc: Herminio Elliott MD
--- NOTE | 2019-07-07 08:58 | PROGRESS NOTE ---
DATE: 07/07/2019 SUBJECTIVE: Patient reports feeling a little bit short of breath, but the pain is located mostly in the right shoulder. Denies any fever or chills. As we mentioned before, he is still having some cough. OBJECTIVE: Vital Signs: Temperature 98.3 degrees, heart rate 89, respiratory rate 18, blood pressure 147/96, O2 saturation 100% on room air. General Examination: This is a 53-year-old, male, lying in bed in no acute distress. Cardiovascular exam: S1, S2 heard. No murmurs, gallops, or rubs. Regular rate and rhythm. Respiratory exam: Minimal crackles noted in both pulmonary bases. Patient not using any accessory muscles or having work of breathing. Abdomen: Soft, nontender to palpation. Bowel sounds present. No organomegaly. Extremities: No clubbing, cyanosis, or edema. Peripheral pulses present in both legs. Neurological exam: Patient alert and oriented x3. Moves 4 extremities. LABORATORY DATA: White cell count 4.57, hemoglobin 13.8, hematocrit 43.6, platelets 241 with BMP that reveals creatinine 1.4. ProBNP that is 1956. IMAGING STUDIES: 1. CT of the chest done yesterday showed mild patchy ground-glass opacity in the right lung, predominantly in the right middle lobe, suspicion for mild pneumonia, possibly an atypical pneumonia. Mild bronchial mucosal thickening at the lung base, chest and bronchi, and minimal interstitial thickening of the lung base suggesting mild interstitial edema. 2. Lexiscan stress nuclear medicine showed ejection fraction 33%. There is no convincing scintigraphic evidence of inducible myocardial ischemia. ASSESSMENT AND PLAN: 1. Community-acquired pneumonia. Patient is feeling better. Findings of the CT of the chest noted. At this point, we will continue with Zosyn and levofloxacin. Patient is also receiving breathing treatments every 6 hours. We will continue with the same management. 2. Acute systolic congestive heart failure. That is a new finding for this patient. The ejection fraction according to the Lexiscan is 25%. The patient has been started on Lasix and Entresto. To continue intravenous fluids The patient will follow recommendation. 3. Right shoulder injury secondary to sleeping attire. Will continue with as-needed pain medication. 4. History of hypertension. Now blood pressure is much better controlled. We will continue with current management. 5. Disposition: We will continue to monitor this patient closely. cc: Deo Langston MD
[2019-07-07] MEDS: LIDODERM TOP SCH (10:24)
[2019-07-07] MEDS: COREG PO SCH ×2 (10:24→20:03)
--- NOTE | 2019-07-07 14:37 | CARDIOLOGY PROGRESS NOTE ---
DATE: 07/07/2019 SUBJECTIVE: Mr. Griffin reports he is doing well. He has no orthopnea. OBJECTIVE: Vital Signs: Afebrile. Heart rate is 93. His blood pressure is 149/89. His I's and O's for the course of the hospitalization have been negative 3.6 L with 2 voids not measured. General: No acute distress. Cardiovascular: He sounds to be in a regular rate and rhythm. He has no murmurs, no S3, no lower extremity edema. Chest exam: Clear bilaterally. He has no increased work of breathing. Abdomen: His abdomen is soft, nontender. PERTINENT DATA: His white count is 4.6, hematocrit 43, platelet count 241. His sodium is 140, potassium 3.8, BUN 19, creatinine is 1.4. BUN and creatinine on the 18 was 20 and 1.2 respectively. His proBNP today is 1956. ASSESSMENT: Mr. Griffin is a 53-year-old black male with a likely nonischemic cardiomyopathy. PLAN: Review of his myocardial perfusion scan by me demonstrates no clear evidence of reversibility. Study likely suggests a nonischemic process. He has an ejection fraction of 23% with severe left ventricular enlargement. His echocardiogram also reviewed by me demonstrates severe reduced LV function with a dilated left ventricle and mild to moderate LVH. We will continue to adjust medications. Presently, the patient is on amlodipine, carvedilol, Lasix and Entresto. I will discontinue the Lasix. He has had a mild creatinine increase in the last 24 hours. We will continue to try to adjust his medications. He will likely need outpatient diuretics. cc: Azam Keane MD
[2019-07-07] MEDS: NORCO-7.5 PO PRN (15:26)
[2019-07-08] MEDS: LEVAQUIN 750 MG/D5W 750 MG/150 ML IVPB IV SCH (00:18)
[2019-07-08] MEDS: ZOSYN 3.375 GM in NS 50 ML IV SCH ×2 (02:03→08:11)
[2019-07-08] MEDS: TYLENOL PO PRN (02:41)
[2019-07-08] MEDS: DUONEB (A & A) INH SCH ×2 (03:35→09:09)
[2019-07-08 05:49] LABS: BASO# 0.03 X1000 (0.0-0.2); BASO% 0.6 % (0.0-0.8); EOS# 0.17 X1000 (0.0-0.7); EOS% 3.5 % (0.0-10.0); HEMATOCRIT 44.1 % (42.0-52.0); LYMPH# 1.84 X1000 (1.2-3.4); LYMPH% 37.7 % (20.5-51.1); MCHC 31.7 g/dL (33-37); MCV 78.8 FL (81-99); MONO# 0.46 X1000 (0.11-0.59); MONO% 9.4 % (1.7-9.3); MPV 10.8 FL (7.4-10.4); NEUT# 2.38 X1000 (1.4-6.5); NEUT% 48.8 % (42.2-75.2); PLT 245 X1000 (130-400); RDW 15.5 % (11.5-14.5); WBC 4.88 X1000 (4.8-10.8)
[2019-07-08] MEDS: PRILOSEC PO SCH (06:00)
[2019-07-08 06:12] LABS: AGAP 12; ALBUMIN 3.8 g/dL (3.5-5.0); BUN 18 mg/dL (8-22); CALCIUM 9.3 mg/dL (8.8-10.2); CHLORIDE 100 mmol/L (98-107); COSMO 277; CREATININE 1.2 mg/dL (0.7-1.2); ESTIMATED GFR > 60; GLUCOSE 119 mg/dL (70-104); PHOSPHORUS 3.8 mg/dL (2.7-4.5); POTASSIUM 4.1 mmol/L (3.5-5.1); SODIUM 137 mmol/L (136-145); TCO2 25 mmol/L (25-35)
[2019-07-08 07:49] VITALS: BP 140/93
[2019-07-08] MEDS: ASPIRIN EC PO SCH (08:11)
[2019-07-08] MEDS: ENTRESTO 24 MG-26 MG TABLET PO SCH (08:11)
[2019-07-08] MEDS: NORVASC PO SCH (08:11)
[2019-07-08] MEDS: COREG PO SCH (08:11)
[2019-07-08] MEDS ORDERED: PREVNAR 13 IM ONE (09:15)
[2019-07-08] MEDS: LIDODERM TOP SCH (10:18)
--- NOTE | 2019-07-08 10:24 | DISCHARGE SUMMARY ---
ADMISSION DATE: 07/05/2019 DISCHARGE DATE: PRIMARY CARE PROVIDER: SENA Loomis. PRIMARY PROCEDURES: Shoulder x-ray showed acromioclavicular joint degeneration. Echocardiogram showed an EF of 20% with LVH. Perfusion scan demonstrated severe left ventricular enlargement with severe global hypokinesis with an EF of 23%, no convincing sonographic evidence of inducible myocardial ischemia. Chest CT showed marked cardiomegaly, mild patchy ground- glass opacity in the right lung, predominantly in the right middle lobe, suspicious for mild pneumonia, possibly atypical. Mild bronchial mucosal thickening in the lung base suggesting bronchitis. Mild interstitial thickening of the lung bases suggesting a mild interstitial edema. CONSULTATIONS: Azam Keane MD with Cardiology. DISCHARGE DIAGNOSES: 1. Likely nonischemic cardiomyopathy. Patient was a chest pain rule out, who has underwent an echocardiogram that showed an ejection fraction of 20% with severe left ventricular enlargement as well as severely reduced left ventricular function. Stress test did not show any acute findings. He was placed on amlodipine, Coreg, Lasix, and Entresto, and medications were adjusted by Cardiology appropriately. 2. Chest pain rule out, ruled out. 3. Community-acquired pneumonia. He was started on Zosyn and levofloxacin and will be discharged on p.o. 4. Right shoulder injury secondary to flipping tire at work, placed on p.r.n. pain medication. X- ray just showed some arthritis. 5. History of hypertension not on any blood pressure medications. Again, the patient will be discharged on several new medications. HOSPITAL COURSE: Briefly, Mr. Griffin is a 53-year-old -[place] gentleman, who claims no past medical history, except he has been told he has had hypertension a few weeks ago at an Urgent Care when he was diagnosed with an upper respiratory infection. He has been taking over-the- counter cold medicines. Reported some postnasal drip, mild cough that had improved. No fever. No chills. He came to the ED for ongoing chest pain of 1 month that was epigastric in nature, however, over the last 2 weeks his chest pain had been associated with shortness of breath, but no nausea, vomiting, dizziness, or diaphoresis. He reports that it is sharp in nature and lasts for a few minutes. Workup in the ED revealed an elevated CK and troponin. The ED spoke with Dr. Wheeler, his recommendation was to transfer to [facility] for further evaluation. His second troponin was elevated as well and was found to have accelerated hypertension. He was made n.p.o. after midnight, transferred to [facility] for an echocardiogram, lipid profile, and continue with p.r.n. medications, and a right shoulder x-ray for his injury that he sustained prior to coming to the ED. Workup with an echocardiogram revealed a severely reduced EF at 23% as well as severe left ventricular enlargement. He was placed on amlodipine, carvedilol, Lasix, and Entresto, that has been adjusted throughout his hospital admission by Cardiology. His perfusion scan did not show any signs of any ischemic changes but did show severe global hypokinesis. His chest CT also showed a probable community-acquired pneumonia as well as some bronchitis for which he was initiated on antibiotics, and he is stable and will be discharged home today to continue to follow up with Cardiology as well as a primary care provider that will be from a list that will be provided to him. VITAL SIGNS: At time of discharge, temperature is 98.3 degrees, heart rate 99, respirations 19, blood pressure 140/93, O2 is 98% on room air. DISCHARGE DIET: Healthy heart. DISCHARGE MEDICATIONS: 1. Aspirin 81 mg p.o. daily. 2. Coreg 3.125 mg p.o. b.i.d. 3. Entresto 24 mg/26 mg 1 each p.o. b.i.d. 4. Potassium 10 mEq p.o. daily. 5. Lasix 20 mg p.o. daily. 6. Levofloxacin 750 mg p.o. daily for 10 days. 7. Norvasc 5 mg p.o. daily. FOLLOWUP: Mr. Griffin is being discharged back to home with self-care. He will need to continue to follow up with Cardiology as well as a primary care provider from the list that has been provided to him. He can return to the ED or call 911 for any worsening of symptoms. Dictated by SENA Mcrae for Deo Langston MD Addendum: Patient seen and examined by myself. Agree with SENA note. It reflects my assessment and plan. Patient is being discharged in stable condition. Will be seen by cardiology in four weeks. cc: Deo Langston MD [facility]
--- NOTE | 2019-07-08 10:39 | CARDIOLOGY PROGRESS NOTE ---
DATE: 07/08/2019 SUBJECTIVE: Mr. Griffin reports no issues overnight. He has no chest pain. He has no shortness of breath. PHYSICAL EXAMINATION: Vital signs: He is afebrile. His heart rate is in the 80s to 90s predominantly. His blood pressure is 140/93. His I's and O's have been -2.5 L for the course of the hospitalization. General: No acute distress. Cardiovascular: He is in a regular rate and rhythm. He has no murmurs. He has no S3. He has no lower extremity edema. Chest: His chest exam is clear bilaterally. He has no increased work of breathing. Abdomen: Soft, nontender. PERTINENT DATA: White count 4.8, hematocrit is 44, platelet count is 245,000. His sodium is 137, potassium is 4.1, BUN 18, creatinine is 1.2. ASSESSMENT: Mr. Griffin is a 53-year-old gentleman, who presented with new onset heart failure that appears to be nonischemic. PLAN: We will continue him on Entresto as well as carvedilol, which I have escalated to 6.25 b.i.d. We will start him on Lasix as well at a dose of 20 mg daily. I will plan on seeing him back in the office in the near future. I will make arrangements from the office. We will check a basic metabolic panel in 1 week. cc: Azam Keane MD
[2019-07-08] MEDS ORDERED: COREG PO SCH (21:00)
[2019-07-09] MEDS ORDERED: LASIX PO SCH (09:00)
== END 2019-07-08 10:39 | disposition home or self-care (01) | DRG 291 ==
LOC: P.ED 15:49 → 2N 15:50 → SUATTDRO 15:50
PROVIDERS: ATTEND Internal Medicine